=== PATIENT | female | born 1955 ===

== ENCOUNTER 2021-10-08 06:15 | Day surgery (SDC) | payer OTHER | END 2021-10-08 12:20 | disposition home or self-care (01) | LOC: AMB-ENDOS 06:15 | PROVIDERS: ATTEND Colon & Rectal Surgery | DX: K62.5 Hemorrhage of anus and rectum (principal); K57.30 Diverticulosis of large intestine without perforation or abscess without bleeding; I10 Essential (primary) hypertension; R19.4 Change in bowel habit ==